=== PATIENT | male | born 1945 | race Asian ===

== ENCOUNTER 2019-05-10 16:14 | Outpatient (CLI) | payer OTHER, MEDICAID | END 2019-05-10 20:27 | disposition home or self-care (01) | LOC: SRD 16:14 | PROVIDERS: ATTEND Internal Medicine | DX: J90 Pleural effusion, not elsewhere classified (principal); I13.11 Hypertensive heart and chronic kidney disease without heart failure, with stage 5 chronic kidney disease, or end stage renal disease; E11.22 Type 2 diabetes mellitus with diabetic chronic kidney disease; N18.6 End stage renal disease; E78.5 Hyperlipidemia, unspecified | CPT/HCPCS: 71046-TC ==

== ENCOUNTER 2019-11-08 17:21 | Outpatient (CLI) | payer OTHER, MEDICAID | END 2019-11-08 21:04 | disposition home or self-care (01) | LOC: SRD 17:21 | PROVIDERS: ATTEND Internal Medicine | DX: J90 Pleural effusion, not elsewhere classified (principal); I51.7 Cardiomegaly; I70.0 Atherosclerosis of aorta | CPT/HCPCS: 71046-TC ==

== ENCOUNTER 2020-10-23 12:40 | Inpatient (IN) | payer OTHER, MEDICAID, SELFPAY ==
[~2020-10-23] VITALS: Ht 177.8 cm; Wt 64.9 kg
[2020-10-23 13:02] VITALS: BP_SYST 161
[2020-10-23 13:44] LABS: BASOPHILS % (AUTO) 0.7 % (0.0-2.0); HEMATOCRIT 25.4 % (36-54); HEMOGLOBIN 8.7 g/dL (14.0-18.0); LYMPHOCYTES # (AUTO) 0.2 K/uL (1.0-5.5); LYMPHOCYTES % (AUTO) 6.6 % (20.5-51.5); MEAN CORPUSCULAR HEMOGLOBIN 30 pg (27-31); MEAN CORPUSCULAR HGB CONC 34 % (32-36); MEAN CORPUSCULAR VOLUME 88 fL (79.0-98.0); MONOCYTES # (AUTO) 0.3 K/uL (0.0-1.0); MONOCYTES % (AUTO) 10.7 % (1.7-9.3); NEUTROPHILS # (AUTO) 2.6 K/uL (1.8-7.7); PLATELET COUNT (AUTO) 133 K/uL (130-430); RED BLOOD CELL COUNT(AUTO) 2.89 MIL/uL (4.2-6.2); RED CELL DISTRIBUTION WIDTH 14.7 % (9.0-15.0); WHITE BLOOD COUNT (AUTO) 3.2 K/uL (4.8-10.8)
[2020-10-23 14:17] LABS: ALANINE AMINOTRANSFERASE 23 U/L (12-78); ALBUMIN 3.6 g/dL (3.4-4.8); ASPARTATE AMINOTRANSFERASE 26 U/L (10-37); CALCIUM 8.9 mg/dL (8.4-11.0); CHLORIDE 93 mmol/L (98-107); GLUCOSE 120 mg/dL (70-99); LACTATE DEHYDROGENASE 176 U/L (85-227); POTASSIUM 4.4 mmol/L (3.5-5.1); SODIUM SERUM 134 mmol/L (136-145); TOTAL BILIRUBIN 1.1 mg/dL (0.0-1.0); UREA NITROGEN, BLOOD 49 mg/dL (8-21)
[2020-10-23 14:33] LABS: C-REACTIVE PROTEIN QUANT 10.8 mg/dL (0-0.5)
[2020-10-23 14:40] LABS: ANION GAP 12 (5-15)
[2020-10-23 14:41] LABS: CREATININE 9.93 mg/dL (0.55-1.30)
[2020-10-23] MEDS ORDERED: ASPIRIN 81 MG TAB.CHEW PO ONE (15:30)
[2020-10-23] MEDS ORDERED: AZITHROMYCIN 500 MG in NS 250 ML IV SCH (18:15)
[2020-10-23] MEDS ORDERED: ALBUTEROL SULFATE 0.083% 2.5 MG/3 ML VIAL.NEB INH PRN (18:15)
[2020-10-23] MEDS ORDERED: IPRATROPIUM BROM 0.5 MG/2.5 ML VIAL.NEB (ATROVENT) INH PRN (18:15)
[2020-10-23 19:00] VITALS: BP_SYST 136
[2020-10-23] MEDS ORDERED: ALBUTEROL SULFATE 0.083% 2.5 MG/3 ML VIAL.NEB INH SCH (19:00)
[2020-10-23 20:10] VITALS: BP_SYST 142
[2020-10-23] MEDS: CHOLECALCIFEROL (VITAMIN D3) 2,000 UNIT TABLET PO SCH (20:15)
[2020-10-23] MEDS: VITAMIN B COMPLEX WITH C TAB/CAP PO SCH (20:15)
[2020-10-23] MEDS ORDERED: LEVOFLOXACIN 500 MG/D5W 100 ML IV ONE ×2 (21:42→22:00)
[2020-10-23] MEDS ORDERED: AZITHROMYCIN 500 MG/VIAL (ZITHROMAX) IV ONE (21:43)
[2020-10-23] MEDS: HEPARIN SODIUM,PORCINE 5,000 UNITS/ML VIAL SUBCUT SCH (22:00)
[2020-10-23] MEDS: DEXAMETHASONE SOD PHOSPHATE 10 MG/ML VIAL IVP SCH (23:20)
[2020-10-24] VITALS (12 sets, daily range): BP systolic 101–153
[2020-10-24] MEDS: HEPARIN SODIUM,PORCINE 5,000 UNITS/ML VIAL SUBCUT SCH ×3 (05:25→21:52)
[2020-10-24 08:04] LABS: BASOPHILS % (AUTO) 0.5 % (0.0-2.0); HEMATOCRIT 26.3 % (36-54); HEMOGLOBIN 8.9 g/dL (14.0-18.0); LYMPHOCYTES # (AUTO) 0.2 K/uL (1.0-5.5); LYMPHOCYTES % (AUTO) 8.4 % (20.5-51.5); MEAN CORPUSCULAR HEMOGLOBIN 30 pg (27-31); MEAN CORPUSCULAR HGB CONC 34 % (32-36); MEAN CORPUSCULAR VOLUME 88 fL (79.0-98.0); MONOCYTES # (AUTO) 0.2 K/uL (0.0-1.0); MONOCYTES % (AUTO) 6.4 % (1.7-9.3); NEUTROPHILS # (AUTO) 2.4 K/uL (1.8-7.7); NEUTROPHILS % (AUTO) 84.7 % (40.0-70.0); PLATELET COUNT (AUTO) 109 K/uL (130-430); RED BLOOD CELL COUNT(AUTO) 2.99 MIL/uL (4.2-6.2); RED CELL DISTRIBUTION WIDTH 14.9 % (9.0-15.0); WHITE BLOOD COUNT (AUTO) 2.8 K/uL (4.8-10.8)
[2020-10-24 08:08] LABS: ALANINE AMINOTRANSFERASE 23 U/L (12-78); ALBUMIN 3.3 g/dL (3.4-4.8); ANION GAP 12 (5-15); ASPARTATE AMINOTRANSFERASE 25 U/L (10-37); CALCIUM 9.5 mg/dL (8.4-11.0); CHLORIDE 94 mmol/L (98-107); GLUCOSE 145 mg/dL (70-99); POTASSIUM 5.5 mmol/L (3.5-5.1); SODIUM SERUM 135 mmol/L (136-145); TOTAL BILIRUBIN 0.9 mg/dL (0.0-1.0); UREA NITROGEN, BLOOD 76 mg/dL (8-21)
[2020-10-24 08:30] LABS: CREATININE 11.27 mg/dL (0.55-1.30)
[2020-10-24] MEDS: ALBUTEROL MDI INHALATION 8 GM INH INH SCH ×3 (09:00→21:34)
[2020-10-24] MEDS: CHOLECALCIFEROL (VITAMIN D3) 2,000 UNIT TABLET PO SCH (09:25)
[2020-10-24] MEDS: VITAMIN B COMPLEX WITH C TAB/CAP PO SCH (09:28)
[2020-10-24] MEDS ORDERED: ASPIRIN 325 MG TABLET NG ONE (18:00)
[2020-10-24] MEDS: PROPOFOL DRIP 100 ML IV PRN ×2 (18:47→21:52)
[2020-10-24] MEDS: IPRATROPIUM BROM 0.5 MG/2.5 ML VIAL.NEB (ATROVENT) INH SCH (19:00)
[2020-10-24] MEDS: DEXAMETHASONE SOD PHOSPHATE 10 MG/ML VIAL IVP SCH (21:40)
[2020-10-25] VITALS (28 sets, daily range): BP systolic 136–194
[2020-10-25] MEDS: IPRATROPIUM BROM 0.5 MG/2.5 ML VIAL.NEB (ATROVENT) INH SCH ×2 (01:00→19:00)
[2020-10-25] MEDS ORDERED: INSULIN REGULAR, HUMAN 100 UNITS/ML, 10 ML VIAL (humuLIN R) SUBCUT PRN (04:45)
[2020-10-25] MEDS: HEPARIN SODIUM,PORCINE 5,000 UNITS/ML VIAL SUBCUT SCH (06:00)
[2020-10-25] MEDS: ALBUTEROL MDI INHALATION 8 GM INH INH SCH ×2 (07:20→21:00)
[2020-10-25] MEDS ORDERED: DEXMEDETOMIDINE HCL 200 MCG in NS 48 ML IV PRN (08:30)
[2020-10-25] MEDS: VITAMIN B COMPLEX WITH C TAB/CAP PO SCH (08:31)
[2020-10-25] MEDS: CHOLECALCIFEROL (VITAMIN D3) 2,000 UNIT TABLET PO SCH (08:31)
[2020-10-25] MEDS: ASPIRIN 325 MG TABLET NG SCH (08:31)
[2020-10-25 09:58] LABS: ANION GAP 17 (5-15); CALCIUM 9.2 mg/dL (8.4-11.0); CHLORIDE 97 mmol/L (98-107); GLUCOSE 139 mg/dL (70-99); POTASSIUM 5.3 mmol/L (3.5-5.1); SODIUM SERUM 139 mmol/L (136-145); UREA NITROGEN, BLOOD 86 mg/dL (8-21)
[2020-10-25 10:11] LABS: BASOPHILS % (AUTO) 0.4 % (0.0-2.0); HEMATOCRIT 26.8 % (36-54); HEMOGLOBIN 9.1 g/dL (14.0-18.0); LYMPHOCYTES # (AUTO) 0.3 K/uL (1.0-5.5); LYMPHOCYTES % (AUTO) 5.1 % (20.5-51.5); MEAN CORPUSCULAR HEMOGLOBIN 30 pg (27-31); MEAN CORPUSCULAR HGB CONC 34 % (32-36); MEAN CORPUSCULAR VOLUME 88 fL (79.0-98.0); MONOCYTES # (AUTO) 0.3 K/uL (0.0-1.0); MONOCYTES % (AUTO) 4.3 % (1.7-9.3); NEUTROPHILS # (AUTO) 5.9 K/uL (1.8-7.7); NEUTROPHILS % (AUTO) 90.2 % (40.0-70.0); PLATELET COUNT (AUTO) 107 K/uL (130-430); RED BLOOD CELL COUNT(AUTO) 3.06 MIL/uL (4.2-6.2); RED CELL DISTRIBUTION WIDTH 15.1 % (9.0-15.0); WHITE BLOOD COUNT (AUTO) 6.5 K/uL (4.8-10.8)
[2020-10-25 10:17] LABS: ALANINE AMINOTRANSFERASE 782 U/L (12-78); ALBUMIN 3.1 g/dL (3.4-4.8); ASPARTATE AMINOTRANSFERASE 1800 U/L (10-37); TOTAL BILIRUBIN 1.8 mg/dL (0.0-1.0)
[2020-10-25 10:23] LABS: CREATININE 9.97 mg/dL (0.55-1.30)
[2020-10-25 11:26] LABS: CLARITY/URINE SLIGHTLY HAZY (CLEAR); COLOR,URINE YELLOW (YELLOW); GLUCOSE,URINE TRACE (NEGATIVE); KETONES,URINE NEGATIVE (NEGATIVE); PH,URINE 8.5 (5.0-8.0); PROTEIN URINE 3+ (NEGATIVE)
[2020-10-25 11:27] LABS: BILIRUBIN,URINE NEGATIVE (NEGATIVE); BLOOD, URINE 2+ (NEGATIVE); LEUKOCYTE ESTERASE ,URINE NEGATIVE (NEGATIVE); NITRITE, URINE NEGATIVE (NEGATIVE); UROBILINOGEN,URINE 0.2 (0.2-1.0)
[2020-10-25 11:28] LABS: BACTERIA,URINE FEW /HPF (None Seen); HYALINE CASTS, URINE 0-10 /LPF (None Seen); MUCUS,URINE 1+ /LPF (None Seen)
[2020-10-25] MEDS ORDERED: hydrALAZINE HCL 20 MG/ML VIAL ONE (17:14)
[2020-10-25] MEDS: hydrALAZINE HCL 20 MG/ML VIAL IVP PRN ×2 (17:38→20:56)
[2020-10-25 17:42] LABS: INR 1.9 (0.80-1.20); PROTHROMBIN TIME 18.9 SECS (9.5-12.5)
[2020-10-25] MEDS: DEXAMETHASONE SOD PHOSPHATE 10 MG/ML VIAL IVP SCH (17:42)
[2020-10-25] MEDS ORDERED: HEPARIN SODIUM,PORCINE 2000 UNITS/0.4 ML BOLUS IVP PRN (18:15)
[2020-10-25] MEDS ORDERED: HEPARIN SODIUM,PORCINE 3000 UNITS/0.6 ML BOLUS IVP PRN (18:15)
[2020-10-25] MEDS ORDERED: LEVOFLOXACIN 250 MG/D5W 50 ML IV SCH (21:00)
[2020-10-25] MEDS: HEPARIN 25,000 UNITS/D5W 250ML 250 ML IV PRN (22:02)
[2020-10-26] VITALS (15 sets, daily range): BP systolic 83–145
[2020-10-26 07:01] LABS: BASOPHILS % (AUTO) 0.2 % (0.0-2.0); HEMATOCRIT 26.9 % (36-54); LYMPHOCYTES # (AUTO) 0.4 K/uL (1.0-5.5); MEAN CORPUSCULAR HEMOGLOBIN 30 pg (27-31); MEAN CORPUSCULAR HGB CONC 33 % (32-36); MEAN CORPUSCULAR VOLUME 89 fL (79.0-98.0); MONOCYTES # (AUTO) 0.5 K/uL (0.0-1.0); MONOCYTES % (AUTO) 5.1 % (1.7-9.3); NEUTROPHILS # (AUTO) 9.2 K/uL (1.8-7.7); NEUTROPHILS % (AUTO) 90.7 % (40.0-70.0); PLATELET COUNT (AUTO) 134 K/uL (130-430); RED BLOOD CELL COUNT(AUTO) 3.04 MIL/uL (4.2-6.2); RED CELL DISTRIBUTION WIDTH 15.6 % (9.0-15.0); WHITE BLOOD COUNT (AUTO) 10.2 K/uL (4.8-10.8)
[2020-10-26 08:11] LABS: ALANINE AMINOTRANSFERASE 2171 U/L (12-78); ANION GAP 15 (5-15); CALCIUM 8.4 mg/dL (8.4-11.0); CHLORIDE 97 mmol/L (98-107); GLUCOSE 76 mg/dL (70-99); SODIUM SERUM 137 mmol/L (136-145); TOTAL BILIRUBIN 2.1 mg/dL (0.0-1.0)
[2020-10-26] MEDS: VITAMIN B COMPLEX WITH C TAB/CAP PO SCH (08:17)
[2020-10-26] MEDS: ASPIRIN 325 MG TABLET NG SCH (08:17)
[2020-10-26] MEDS: CHOLECALCIFEROL (VITAMIN D3) 2,000 UNIT TABLET PO SCH (08:18)
[2020-10-26] MEDS: HEPARIN 25,000 UNITS/D5W 250ML 250 ML IV PRN (09:26)
[2020-10-26 09:50] LABS: ASPARTATE AMINOTRANSFERASE 4288 U/L (10-37)
[2020-10-26 09:55] LABS: POTASSIUM 7.3 mmol/L (3.5-5.1)
[2020-10-26 09:56] LABS: CREATININE 12.19 mg/dL (0.55-1.30); UREA NITROGEN, BLOOD 122 mg/dL (8-21)
[2020-10-26] MEDS ORDERED: NOREPINEPHRINE 4 MG/4 ML VIAL IV ONE (10:08)
== END 2020-10-26 10:45 | disposition expired | DRG 208 ==
LOC: SED 12:40 → STU 16:05 → SIC 10-24 17:33
PROVIDERS: ADMIT Internal Medicine Hospice and Palliative Medicine; ATTEND Internal Medicine Hospice and Palliative Medicine
PROC: 5A1945Z Respiratory Ventilation, 24-96 Consecutive Hours (ICD-10-PCS; principal; 2020-10-24)
PROC: 0BH17EZ Insertion of Endotracheal Airway into Trachea, Via Natural or Artificial Opening (ICD-10-PCS; 2020-10-24)
PROC: 5A1D70Z Performance of Urinary Filtration, Intermittent, Less than 6 Hours Per Day (ICD-10-PCS; 2020-10-24)
PROC: 05HY33Z Insertion of Infusion Device into Upper Vein, Percutaneous Approach (ICD-10-PCS; 2020-10-25)
PROC: B54MZZA Ultrasonography of Right Upper Extremity Veins, Guidance (ICD-10-PCS; 2020-10-25)
PROC: 5A1D70Z Performance of Urinary Filtration, Intermittent, Less than 6 Hours Per Day (ICD-10-PCS; 2020-10-26)
PROC: 5A12012 Performance of Cardiac Output, Single, Manual (ICD-10-PCS; 2020-10-26)
DX: U07.1 COVID-19 (principal); A41.9 Sepsis, unspecified organism; J96.01 Acute respiratory failure with hypoxia; N18.6 End stage renal disease; J12.82 Pneumonia due to coronavirus disease 2019; I21.4 Non-ST elevation (NSTEMI) myocardial infarction; G93.1 Anoxic brain damage, not elsewhere classified; I12.0 Hypertensive chronic kidney disease with stage 5 chronic kidney disease or end stage renal disease; D64.9 Anemia, unspecified; I46.9 Cardiac arrest, cause unspecified; Z66 Do not resuscitate; E11.22 Type 2 diabetes mellitus with diabetic chronic kidney disease; Z79.4 Long term (current) use of insulin; Z99.2 Dependence on renal dialysis; Z88.0 Allergy status to penicillin
CPT/HCPCS: 36415; 36600; 71045; 80053; 81000-TC; 82272; 82803-TC; 82962; 83605; 83615-TC; 83880; 84484; 85025; 85379; 85610-TC; 85730-TC; 86140; 87040-TC; 90935; 92950; 93005; 93306; 94002; 94003; 94640; 99291; C1751; G0378; J0360; J0456; J1100; J1644; J1956; J2704; J7040; J7050; U0003